=== PATIENT | female | born 1965 | race American Indian/Alaskan Native ===

== ENCOUNTER 2018-06-30 09:17 | Inpatient (IN) | payer OTHER ==
--- NOTE | 2018-06-30 10:40 | ED PDOC ---
HPI: CCC, URI, Sore Throat Time Seen by Provider: 06/30/18 10:17 Chief Complaint (Nursing): ENT Problem Chief Complaint (Provider): ENT Problem History Per: Patient History/Exam Limitations: no limitations Onset/Duration Of Symptoms: Days (x1) Associated Symptoms: Chills, Sore Throat, Other (Ear pain). denies: Cough Additional Complaint(s): 52 years old female presents to ER for evaluation of sore throat associated with painful swallowing, chills and right ear pain since yesterday. Patient denies cough or shortness of breath. PMD: non provided Past Medical History Reviewed: Historical Data, Nursing Documentation, Vital Signs Vital Signs: Last Vital Signs Temp 98.8 F 06/30/18 09:28 Pulse 110 H 06/30/18 09:51 Resp 19 06/30/18 09:51 BP 175/97 H 06/30/18 09:51 Pulse Ox 100 06/30/18 09:51 - Medical History PMH: Diabetes, HTN - Surgical History Surgical History: No Surg Hx - Family History Family History: States: Unknown Family Hx - Social History Current smoker - smoking cessation education provided: Yes Alcohol: Social Drugs: Denies - Home Medications Home Medications: Ambulatory Orders Medication Instructions Recorded Aspirin [Ecotrin] 81 mg PO DAILY #30 tabec 07/03/18 Carvedilol [Coreg] 3.125 mg PO Q12 30 Days #60 tab 07/03/18 Losartan [Cozaar] 25 mg PO DAILY #30 tab 07/03/18 Rosuvastatin Calcium [Crestor] 40 mg PO HS 30 Days #30 tablet 07/03/18 Insulin Detemir [Levemir] 10 units SC HS #1 vial 07/04/18 MetFORMIN [glucoPHAGE] 1,000 mg PO BID 30 Days #60 tab 07/04/18 - Allergies Allergies/Adverse Reactions: Allergies Allergy/AdvReac Type Severity Reaction Status Date / Time No Known Allergies Allergy Verified 04/30/15 07:21 Review of Systems ROS Statement: Except As Marked, All Systems Reviewed And Found Negative Constitutional: Positive for: Chills ENT: Positive for: Ear Pain (Right), Throat Pain (with painful swallowing) Respiratory: Negative for: Cough, Shortness of Breath Physical Exam - Reviewed Nursing Documentation Reviewed: Yes Vital Signs Reviewed: Yes - Physical Exam Appears: Positive for: Well (Speaking full sentences), No Acute Distress ENT: Positive for: Pharynx Is (clear), TM Is/Are (normal), Tonsillar Exudate (on right tonsillar). Negative for: Other (Drooling of uvula midline) Cardiovascular/Chest: Positive for: Regular Rate, Rhythm. Negative for: Murmur Respiratory: Positive for: Normal Breath Sounds. Negative for: Wheezing Neurologic/Psych: Positive for: Alert, Oriented (x3) - Laboratory Results Result Diagrams: 07/04/18 05:30 07/04/18 05:30 - ECG O2 Sat by Pulse Oximetry: 100 (RA) Pulse Ox Interpretation: Normal Medical Decision Making Medical Decision Making: Time: 1033 Initial Plan: --Motrin 600 mg PO --Throat Culture --Rapid Strep Group A Antigen Scribe Attestation: Documented by Becky Allen, acting as a scribe for Paige Lawrence MD. Provider Scribe Attestation: All medical record entries made by the Scribe were at my direction and personally dictated by me. I have reviewed the chart and agree that the record accurately reflects my personal performance of the history, physical exam, medical decision making, and the department course for this patient. I have also personally directed, reviewed, and agree with the discharge instructions and disposition. Disposition - Clinical Impression Clinical Impression: Pharyngitis, Sepsis - Disposition Disposition Time: 15:57 Condition: STABLE - Pt Status Changed To: Hospital Disposition Of: Inpatient - Admit Certification Admit to Inpatient:: After my assessment, the patient will require hospitalization for at least two midnights. This is because of the severity of symptoms shown, intensity of services needed, and/or the medical risk in this patient being treated as an outpatient. - POA Present On Arrival: Poor Glycemic Control
[2018-06-30] MEDS ORDERED: Sodium Chloride 0.9% 1,000 ML IV STA ×3 (11:53→17:12)
[2018-06-30] MEDS ORDERED: Azithromycin 500 MG in Sodium Chloride 0.9% 250 ML IV STA (11:54)
[2018-06-30] MEDS ORDERED: Azithromycin 500 MG IV IVPB ONE (11:58)
[2018-06-30 12:38] LABS: BASO # 0.1 K/uL (0.0-0.2); BASO % 0.8 % (0.0-2.0); EOS # 0.1 K/uL (0.0-0.7); EOS % 0.8 % (0.0-4.0); HEMOGLOBIN 12.5 g/dL (12.0-16.0); LYMPH # 1.8 K/uL (1.0-4.3); LYMPH % 12.3 % (20.0-40.0); MEAN CELL VOLUME 84.1 fl (81.0-99.0); MEAN CORPUSCULAR HEMOGLOBIN 28.2 pg (27.0-31.0); MEAN CORPUSCULAR HGB CONC 33.5 g/dL (33.0-37.0); MEAN PLATELET VOLUME 7.7 fl (7.2-11.7); MONO # 1.2 K/uL (0.0-0.8); MONO % 8.1 % (0.0-10.0); NEUT # 11.6 K/uL (1.8-7.0); NRBC % 0.2 % (0.0-0.0); RBC 4.45 Mil/uL (3.80-5.20); RED CELL DISTRIBUTION WIDTH 15.3 % (11.5-14.5); WHITE BLOOD COUNT 14.9 K/uL (4.8-10.8)
[2018-06-30 12:41] LABS: VENOUS BLOOD GAS BASE EXCESS -0.6 mmol/L (0.0-2.0); VENOUS BLOOD GAS PCO2 43 mmHg (40-60); VENOUS BLOOD GAS PO2 28 mm/Hg (30-55); VENOUS BLOOD PH 7.37 (7.32-7.43)
[2018-06-30 13:36] LABS: ALB/GLOB RATIO 1.2 (1.0-2.1); ALT/SGPT 14 U/L (9-52); AST/SGOT 16 U/L (14-36); BLOOD UREA NITROGEN 7 mg/dl (7-17); CALCIUM 8.6 mg/dL (8.4-10.2); GFR NON-AFRICAN AMERICAN > 60
[2018-06-30 16:48] LABS: VENOUS BLOOD GAS PCO2 31 mmHg (40-60); VENOUS BLOOD GAS PO2 69 mm/Hg (30-55); VENOUS BLOOD PH 7.41 (7.32-7.43)
[2018-06-30] MEDS ORDERED: Piperacillin/Tazobact 4.5 GM in Sodium Chloride 0.9% 100 ML IVPB STA (16:51)
--- NOTE | 2018-06-30 16:51 | RAD ---
Date of service: 06/30/2018 HISTORY: Fever COMPARISON: No prior. TECHNIQUE: Chest PA and lateral FINDINGS: LINES AND TUBES: None. LUNG AND PLEURA: The lungs are well inflated and clear. No pleural effusion or pneumothorax. HEART AND MEDIASTINUM: The heart is not enlarged. No aortic atherosclerotic calcification present. The hilar and mediastinal contours are within normal limits. SKELETAL STRUCTURES: The bony structures are within normal limits for the patient's age. VISUALIZED UPPER ABDOMEN: Normal. OTHER FINDINGS: None. IMPRESSION: No active pulmonary disease.
[2018-06-30] MEDS ORDERED: Glucagon Recombinant 1 mg Inj IM PRN (17:36)
[2018-06-30] MEDS ORDERED: Dextrose 50% SYRINGE Inj (50 ml) IV PRN (17:36)
--- NOTE | 2018-06-30 17:47 | CP.PCM.HP ---
History of Present Illness - History of Present Illness History of Present Illness: 52 y/o F with PMHx of HTN, DM type 2 presents to ED complaining of sore throat, right ear pain, dry non productive cough since yesterday morning. Patient denies fevers, but had some chills this morning. Patient reports SOB when walking up stairs. IN ER patient has been tachycardic, and labs positive for leukocytosis, and elevated lactic acid. PMD: Dr. Reid Allergies: NKDA PMHx: HTN, DM type 2 Shx: 1 C section SocialHx: Smokes: more than 1/2 pack daily for years, etoh: 1 beer daily, denies recreational drugs ER course: Afebrile, tachy PE: pharynx erythema, dry mucous membranes labs: significant for leukocytosis 14.9, elevated lactate 3.1, and repeat test : 4.3 EKG: sinus tachy, no ST changes CXR : no active disease ER Tx: NS IV fluids 3 L, azithromycin once, zosyn once Present on Admission - Present on Admission Any Indicators Present on Admission: No History of DVT/PE: No History of Uncontrolled Diabetes: No Urinary Catheter: No Decubitus Ulcer Present: No Review of Systems - Review of Systems All systems: reviewed and no additional remarkable complaints except (as per HPI) Past Patient History - Past Social History Alcohol: Social Drugs: Denies - CARDIAC Hx Cardiac Disorders: Yes - ENDOCRINE/METABOLIC Hx Endocrine Disorders: Yes - PSYCHIATRIC Hx Substance Use: No - SURGICAL HISTORY Hx Section: Yes Hx Orthopedic Surgery: Yes (left fractured ankle) - ANESTHESIA Hx Anesthesia: Yes Hx Anesthesia Reactions: No Meds Allergies/Adverse Reactions: Allergies Allergy/AdvReac Type Severity Reaction Status Date / Time No Known Allergies Allergy Verified 04/30/15 07:21 Physical Exam - Constitutional Appears: Non-toxic, No Acute Distress - Eye Exam Eye Exam: EOMI, Normal appearance - ENT Exam ENT Exam: Mucous Membranes Dry - Respiratory Exam Respiratory Exam: Clear to Auscultation Bilateral, NORMAL BREATHING PATTERN. absent: Chest Wall Tenderness, Rales, Rhonchi, Wheezes, Respiratory Distress, Stridor - Cardiovascular Exam Cardiovascular Exam: Tachycardia, REGULAR RHYTHM, +S1, +S2 - GI/Abdominal Exam GI & Abdominal Exam: Normal Bowel Sounds, Soft. absent: Distended, Guarding, Rebound, Rigid, Tenderness - Extremities Exam Extremities exam: Positive for: normal inspection. Negative for: calf tenderness, pedal edema - Back Exam Back exam: NORMAL INSPECTION. absent: CVA tenderness (L), CVA tenderness (R) - Neurological Exam Neurological exam: Alert, CN II-XII Intact, Normal Gait, Oriented x3 - Psychiatric Exam Psychiatric exam: Normal Affect, Normal Mood - Skin Skin Exam: Dry, Intact, Normal Color Results - Vital Signs Recent Vital Signs: Last Vital Signs Temp 98.4 F 06/30/18 17:36 Pulse 114 H 06/30/18 17:36 Resp 17 06/30/18 17:36 BP 150/94 H 06/30/18 17:36 Pulse Ox 100 06/30/18 17:36 - Labs Result Diagrams: 07/01/18 04:40 07/01/18 02:55 Labs: Laboratory Results - last 24 hr 06/30/18 06/30/18 06/30/18 10:53 10:55 11:54 WBC RBC Hgb Hct MCV MCH MCHC RDW Plt Count MPV Neut % (Auto) Lymph % (Auto) Wheeler % (Auto) Eos % (Auto) Baso % (Auto) Neut # (Auto) Lymph # (Auto) Wheeler # (Auto) Eos # (Auto) Baso # (Auto) pO2 28 L VBG pH 7.37 VBG pCO2 43 VBG HCO3 23.2 VBG Total CO2 26.2 VBG O2 Sat (Calc) 53.6 VBG Base Excess -0.6 L VBG Potassium 4.2 Sodium 132.0 Chloride 98.0 Glucose 267 H Lactate 3.1 H FiO2 21.0 Crit Value Called To Crit Value Called By Crit Value Read Back Blood Gas Notified Time Potassium Carbon Dioxide Anion Gap BUN Creatinine Est GFR ( Amer) Est GFR (Non-Af Amer) POC Glucose (mg/dL) 231 H Random Glucose Calcium Total Bilirubin AST ALT Alkaline Phosphatase Total Protein Albumin Globulin Albumin/Globulin Ratio Venous Blood Potassium 4.2 Grp A Beta Strep Ag Negative 06/30/18 06/30/18 06/30/18 12:25 12:25 12:57 WBC 14.9 H RBC 4.45 Hgb 12.5 Hct 37.4 MCV 84.1 MCH 28.2 MCHC 33.5 RDW 15.3 H Plt Count 364 MPV 7.7 Neut % (Auto) 78.0 H Lymph % (Auto) 12.3 L Wheeler % (Auto) 8.1 Eos % (Auto) 0.8 Baso % (Auto) 0.8 Neut # (Auto) 11.6 H Lymph # (Auto) 1.8 Wheeler # (Auto) 1.2 H Eos # (Auto) 0.1 Baso # (Auto) 0.1 pO2 VBG pH VBG pCO2 VBG HCO3 VBG Total CO2 VBG O2 Sat (Calc) VBG Base Excess VBG Potassium Sodium Cancelled 133 Chloride Cancelled 102 Glucose Lactate FiO2 Crit Value Called To Crit Value Called By Crit Value Read Back Blood Gas Notified Time Potassium Cancelled 4.2 Carbon Dioxide Cancelled 21 L Anion Gap Cancelled 14 BUN Cancelled 7 Creatinine Cancelled 0.4 L Est GFR ( Amer) Cancelled > 60 Est GFR (Non-Af Amer) Cancelled > 60 POC Glucose (mg/dL) Random Glucose Cancelled 241 H Calcium Cancelled 8.6 Total Bilirubin Cancelled 0.4 AST Cancelled 16 ALT Cancelled 14 Alkaline Phosphatase Cancelled 58 Total Protein Cancelled 7.3 Albumin Cancelled 4.0 Globulin Cancelled 3.3 Albumin/Globulin Ratio Cancelled 1.2 Venous Blood Potassium Grp A Beta Strep Ag 06/30/18 06/30/18 15:17 16:45 WBC RBC Hgb Hct MCV MCH MCHC RDW Plt Count MPV Neut % (Auto) Lymph % (Auto) Wheeler % (Auto) Eos % (Auto) Baso % (Auto) Neut # (Auto) Lymph # (Auto) Wheeler # (Auto) Eos # (Auto) Baso # (Auto) pO2 69 H VBG pH 7.41 VBG pCO2 31 L VBG HCO3 21.7 VBG Total CO2 20.6 L VBG O2 Sat (Calc) 96.5 H VBG Base Excess -4.0 L VBG Potassium 4.2 Sodium 131.0 L Chloride 99.0 Glucose 337 H Lactate 4.3 H* FiO2 21.0 Crit Value Called To Paige brower md Crit Value Called By 6075 Crit Value Read Back Y Blood Gas Notified Time 1648 Potassium Carbon Dioxide Anion Gap BUN Creatinine Est GFR ( Amer) Est GFR (Non-Af Amer) POC Glucose (mg/dL) 230 H Random Glucose Calcium Total Bilirubin AST ALT Alkaline Phosphatase Total Protein Albumin Globulin Albumin/Globulin Ratio Venous Blood Potassium 4.2 Grp A Beta Strep Ag Assessment & Plan - Assessment and Plan (Free Text) Assessment: 52 y/o F with PMHx of HTN, DM type 2 admitted with URI, tachycardia, and elevated lactic acid. Plan: Tachycardia -alarm security or surveillance monitor -IV hydration -repeat EKG in AM -check TSH -check urine toxicology -echocardiogram -f/u HR -will consider cardiology Pharyngitis seems to be viral etiology, however lactic acid is elevated on admission, and pt is tachycardic -rapid strep test in ER neg -check flu A/B test -cepachol for sore throat -tylenol PRN if fevers -Ibuprofen PRN for sore throat -s/p zosyn, and azithro in ER one dose, will re-assess in the morning Elevated lactate -check procalcitonin -hold Metformin for now Hypertension -DC amlodipine 10 due to tachycardia -Increase Lisinopril from 10 to 20 mg -will consider add another antihypertensive -f/u BP DM type 2 accuckeck ACHS levemir 8 units HS humalog by sliding scale ACHS low dose diabetic diet Smoker nicotine patch DVT prophylaxis lovenox - Date & Time Date: 06/30/18 Time: 17:00
[2018-06-30] MEDS: Sodium Chloride 0.45% 1,000 ML IV SCH (17:50)
[2018-06-30 18:37] VITALS: BMI 39.6
--- NOTE | 2018-06-30 18:54 | CARD ---
APPROVED REPORT Date of service: 06/30/2018 EKG Measurement Heart [id number] <Conclusion> Sinus tachycardia Left axis deviation Left ventricular hypertrophy with repolarization abnormality Cannot rule out Septal infarct, age undetermined Abnormal ECG
[2018-06-30] MEDS: Benzocaine/Menthol (Cepacol) Lozenge PO SCH ×2 (19:05→22:00)
[2018-06-30 19:22] LABS: BARBITURATES, UR NEGATIVE (NEGATIVE); BENZODIAZEPINES, UR NEGATIVE (NEGATIVE); OPIATES, UR NEGATIVE (NEGATIVE); PHENCYCLIDINE, UR NEGATIVE (NEGATIVE)
[2018-06-30 19:29] LABS: HDL CHOLESTEROL 81 MG/DL (30-70)
[2018-06-30 19:39] LABS: LDL CHOLESTEROL 102 mg/dL (0-129)
[2018-06-30] MEDS: Insulin Lispro (humaLOG) 100 Units/ml Inj SC SCH (22:00)
[2018-06-30] MEDS ORDERED: Insulin Detemir 100 Units/ml Inj SC SCH (22:00)
[2018-07-01] MEDS: Benzocaine/Menthol (Cepacol) Lozenge PO SCH ×5 (01:30→21:47)
[2018-07-01 03:05] LABS: ALB/GLOB RATIO 1.2 (1.0-2.1); ALBUMIN 3.6 g/dL (3.5-5.0); ALT/SGPT 13 U/L (9-52); AST/SGOT 14 U/L (14-36); BLOOD UREA NITROGEN 7 mg/dl (7-17); CALCIUM 8.3 mg/dL (8.4-10.2); GFR NON-AFRICAN AMERICAN > 60
[2018-07-01] MEDS: Sodium Chloride 0.45% 1,000 ML IV SCH (05:08)
[2018-07-01 05:53] LABS: BASO # 0.1 K/uL (0.0-0.2); BASO % 0.6 % (0.0-2.0); EOS # 0.1 K/uL (0.0-0.7); EOS % 0.6 % (0.0-4.0); HEMOGLOBIN 11.4 g/dL (12.0-16.0); LYMPH # 1.3 K/uL (1.0-4.3); LYMPH % 10.1 % (20.0-40.0); MEAN CELL VOLUME 81.4 fl (81.0-99.0); MEAN CORPUSCULAR HEMOGLOBIN 28.1 pg (27.0-31.0); MEAN CORPUSCULAR HGB CONC 34.5 g/dL (33.0-37.0); MEAN PLATELET VOLUME 7.9 fl (7.2-11.7); MONO # 0.9 K/uL (0.0-0.8); MONO % 6.9 % (0.0-10.0); NEUT # 10.9 K/uL (1.8-7.0); NEUT % 81.8 % (50.0-75.0); RBC 4.08 Mil/uL (3.80-5.20); WHITE BLOOD COUNT 13.3 K/uL (4.8-10.8)
[2018-07-01] MEDS ORDERED: Potassium Chloride 20 mEq ER Tab PO ONE (06:31)
[2018-07-01] MEDS ORDERED: Benzocaine/Menthol (Cepacol) Lozenge PO ONE (08:30)
[2018-07-01] MEDS ORDERED: Enoxaparin 40 mg Syringe SC SCH (09:00)
[2018-07-01] MEDS ORDERED: Metoprolol Succinate 25 mg XL Tab PO SCH (09:00)
[2018-07-01] MEDS: Insulin Lispro (humaLOG) 100 Units/ml Inj SC SCH ×4 (09:30→22:00)
[2018-07-01] MEDS: Pantoprazole 40 mg EC Tab PO SCH (09:34)
--- NOTE | 2018-07-01 13:26 | CP.PCM.PN ---
Subjective - Date & Time of Evaluation Date of Evaluation: 07/01/18 Time of Evaluation: 08:00 - Subjective Subjective: Patient was seen, and examined at bedside this morning. Patient states still having sore throat. No fevers overnight. Still tachycardic. Patient denies chest pain, SOB, abdominal pain, urinary symptoms, diarrheas, bloody stools. Objective - Vital Signs/Intake and Output Vital Signs (last 24 hours): Temp Pulse Resp BP Pulse Ox 100.3 F H 108 H 20 159/93 H 100 07/01/18 12:21 07/01/18 12:21 07/01/18 12:21 07/01/18 12:21 07/01/18 12:21 - Medications Medications: Current Medications Acetaminophen (Tylenol 325mg Tab) 650 mg PO Q6 PRN PRN Reason: Fever >100.4 F Benzocaine/Menthol (Cepacol Sore Throat) 1 mallory PO Q6 [facility] Last Admin: 07/01/18 11:12 Dose: 1 mallory Dextrose (Dextrose 50% Inj) 0 ml IV STAT PRN; Protocol PRN Reason: Hypoglycemia Protocol Dextrose (Glutose 15) 0 gm PO ONCE PRN; Protocol PRN Reason: Hypoglycemia Protocol Enoxaparin Sodium (Lovenox) 40 mg SC DAILY [facility]; Protocol Last Admin: 07/01/18 09:26 Dose: 40 mg Glucagon (Glucagen Diagnostic Kit) 0 mg IM STAT PRN; Protocol PRN Reason: Hypoglycemia Protocol Azithromycin 500 mg/ Sodium (Chloride) 250 mls @ 250 mls/hr IVPB DAILY [facility]; Protocol Insulin Detemir (Levemir) 8 units SC HS [facility] Last Admin: 06/30/18 22:05 Dose: 8 units Insulin Human Lispro (Humalog) 0 units SC ACHS [facility]; Protocol Last Admin: 07/01/18 11:54 Dose: 3 units Lisinopril (Zestril) 20 mg PO DAILY [facility] Last Admin: 07/01/18 09:32 Dose: 20 mg Metoprolol Succinate (Toprol Xl) 25 mg PO DAILY [facility] Last Admin: 07/01/18 09:46 Dose: 25 mg Nicotine (Nicoderm Cq) 1 patch TD DAILY [facility] Last Admin: 07/01/18 09:29 Dose: 1 patch Pantoprazole Sodium (Protonix Ec Tab) 40 mg PO DAILY [facility] Last Admin: 07/01/18 09:34 Dose: 40 mg Thiamine HCl (Vitamin B1 Tab) 100 mg PO DAILY [facility] Last Admin: 07/01/18 09:32 Dose: 100 mg - Labs Labs: 07/01/18 04:40 07/01/18 02:55 - Constitutional Appears: Non-toxic, No Acute Distress - Eye Exam Eye Exam: Normal appearance - ENT Exam ENT Exam: Mucous Membranes Moist - Respiratory Exam Respiratory Exam: Clear to Ausculation Bilateral, NORMAL BREATHING PATTERN. absent: Rales, Rhonchi, Wheezes, Respiratory Distress, Stridor - Cardiovascular Exam Cardiovascular Exam: Tachycardia, REGULAR RHYTHM, +S1, +S2 - GI/Abdominal Exam GI & Abdominal Exam: Soft, Normal Bowel Sounds. absent: Distended, Guarding, Tenderness - Extremities Exam Extremities Exam: Normal Inspection. absent: Calf Tenderness, Pedal Edema - Back Exam Back Exam: NORMAL INSPECTION. absent: CVA tenderness (L), CVA tenderness (R) - Neurological Exam Neurological Exam: Alert, Awake, Oriented x3 - Skin Skin Exam: Dry, Intact, Normal Color Assessment and Plan - Assessment and Plan (Free Text) Assessment: 52 y/o F with PMHx of HTN, DM type 2 admitted with URI, tachycardia, and elevate d lactic acid. Plan: Tachycardia -clinical research monitor -still tachy -repeat EKG in AM showed similar findings -TSH pending -urine toxicology negative -echocardiogram pending results -start Metoprolol succ 25 mg -troponin I x 2 negative -f/u HR -Cardiology consult, appreciated recommendations Pharyngitis seems to be viral etiology, however lactic acid is elevated on admission, and pt is tachycardic -rapid strep test in ER neg -flu A/B test negative -cepachol for sore throat -tylenol PRN if fevers -Ibuprofen PRN for sore throat -s/p zosyn, and azithro in ER one dose, will re-assess in the morning Elevated lactate resolved this morning/1.4 -procalcitonin <0.05 -troponin I x 2 negative -f/u UA Hypertension uncontrolled -DC amlodipine 10 due to tachycardia -increase Lisinopril from 20 to 40 mg -start Metoprolol succ 25 mg -f/u BP DM type 2 accuckeck ACHS increase levemir from 8 to 10 units HS humalog by sliding scale ACHS low dose diabetic diet hgbA1C 8.6 lipid panel: cho: 186, LDL: 102, HDL: 81 will resume Metformin 1000 mg BID. Will check lactic acid in am -start aspirin, and statin Hypokalemia mild replace with potassium cl 20 meq check in am Smoker nicotine patch DVT prophylaxis lovenox
[2018-07-01] MEDS: Azithromycin 500 MG in Sodium Chloride 0.9% 250 ML IVPB SCH (15:26)
[2018-07-01] MEDS ORDERED: Metoprolol Succinate 25 mg XL Tab PO ONE (17:15)
--- NOTE | 2018-07-01 20:52 | CARD ---
APPROVED REPORT Date of service: 07/01/2018 EKG Measurement Heart [id number] <Conclusion> Sinus tachycardia Left axis deviation Incomplete left bundle branch block Minimal voltage criteria for LVH, may be normal variant Abnormal ECG
[2018-07-01 21:29] LABS: MEAN CELL VOLUME 82.4 fl (81.0-99.0); MEAN CORPUSCULAR HEMOGLOBIN 27.4 pg (27.0-31.0); MEAN CORPUSCULAR HGB CONC 33.3 g/dL (33.0-37.0); RBC 4.38 Mil/uL (3.80-5.20); RED CELL DISTRIBUTION WIDTH 14.9 % (11.5-14.5); WHITE BLOOD COUNT 18.5 K/uL (4.8-10.8)
--- NOTE | 2018-07-01 21:30 | CARD ---
APPROVED REPORT Date of service: 07/01/2018 EXAM: Two-dimensional and M-mode echocardiogram with Doppler and color Doppler. Other Information Quality : GoodRhythm : Tachycardia INDICATION Abnormal EKG/Arrhythmia 2D DIMENSIONS IVSd1.08 (0.7-1.1cm)LVDd4.05 (3.9-5.9cm) LVOT Diameter2.06 (1.8-2.4cm)PWd1.23 (0.7-1.1cm) IVSs1.12 (0.8-1.2cm)LVDs3.17 (2.5-4.0cm) FS (%) 21.6 %PWs1.61 (0.8-1.2cm) M-Mode DIMENSIONS Left Atrium (MM)3.38 (2.5-4.0cm)IVSd1.06 (0.7-1.1cm) Aortic Root2.41 (2.2-3.7cm)LVDd4.74 (4.0-5.6cm) Aortic Cusp Exc.1.82 (1.5-2.0cm)PWd1.00 (0.7-1.1cm) IVSs1.47 cmFS (%) 32 % LVDs3.21 (2.0-3.8cm)PWs1.62 cm Aortic Valve AoV Peak Itfuspzu596.9cm/sAoV VTI27.2cmAO Peak GR.10mmHg LVOT Peak Bspzjmgx139.1cm/sLVOT VTI17.99cmAO Mean GR.6mmHg RED (VMAX)1.39pr7EHB (VTI)1.97xm7AK P 1/2 [id number] Mitral Valve E/A ratio0.0 TDI E/Lateral E'0.0E/Medial E'0.0 LEFT VENTRICLE The left ventricle is normal size. There is normal left ventricular wall thickness. The left ventricular systolic function is normal. The estimated ejection fraction is 55-60% No regional wall motion abnormalities noted.. Transmitral Doppler flow pattern is Grade I-abnormal relaxation pattern. No left ventricle thrombus noted on this study. There is no ventricular septal defect visualized. There is no left ventricular aneurysm. There is no mass noted in the left ventricle. RIGHT VENTRICLE The right ventricle is normal size. There is normal right ventricular wall thickness. The right ventricular systolic function is normal. ATRIA The left atrium is mildly dilated. The right atrium size is normal. The interatrial septum is intact with no evidence for an atrial septal defect. AORTIC VALVE The aortic valve is normal in structure. Mild aortic regurgitation is present. There is no aortic valvular stenosis. There is no aortic valvular vegetation. MITRAL VALVE The mitral valve is normal in structure. There is no evidence of mitral valve prolapse. There is no mitral valve stenosis. There is trace to mild mitral valve regurgitation noted. TRICUSPID VALVE The tricuspid valve is normal in structure. There is no tricuspid valve regurgitation noted. There is no tricuspid valve prolapse or vegetation. There is no tricuspid valve stenosis. PULMONIC VALVE The pulmonary valve is normal in structure. There is no pulmonic valvular regurgitation. There is no pulmonic valvular stenosis. GREAT VESSELS The aortic root is normal in size. The ascending aorta is normal in size. The pulmonary artery is normal. The IVC is normal in size and collapses >50% with inspiration. PERICARDIAL EFFUSION There is no pericardial effusion. There is no pleural effusion. <Conclusion> The estimated ejection fraction is 55-60% Transmitral Doppler flow pattern is Grade I-abnormal relaxation pattern. The left atrium is mildly dilated. Mild aortic regurgitation is present. There is trace to mild mitral valve regurgitation noted.
[2018-07-01 21:40] LABS: PROTHROMBIN TIME 11.1 Seconds (9.8-13.1)
[2018-07-01 21:43] LABS: PARTIAL THROMBOPLASTIN TIME 31.9 Seconds (25.6-37.1)
[2018-07-01] MEDS ORDERED: Insulin Detemir 100 Units/ml Inj SC SCH (22:00)
[2018-07-01] MEDS: Heparin 25,000units in D5W 25,000 UNITS/250 ML BAG IV SCH (22:06)
[2018-07-02] MEDS: Benzocaine/Menthol (Cepacol) Lozenge PO SCH ×4 (03:35→21:03)
[2018-07-02 05:42] LABS: BASO # 0.1 K/uL (0.0-0.2); BASO % 0.4 % (0.0-2.0); EOS # 0.1 K/uL (0.0-0.7); EOS % 0.5 % (0.0-4.0); HEMOGLOBIN 12.4 g/dL (12.0-16.0); LYMPH # 1.9 K/uL (1.0-4.3); LYMPH % 10.7 % (20.0-40.0); MEAN CELL VOLUME 81.4 fl (81.0-99.0); MEAN CORPUSCULAR HEMOGLOBIN 27.8 pg (27.0-31.0); MEAN CORPUSCULAR HGB CONC 34.1 g/dL (33.0-37.0); MEAN PLATELET VOLUME 8.1 fl (7.2-11.7); MONO # 1.6 K/uL (0.0-0.8); MONO % 9.1 % (0.0-10.0); NEUT # 14.1 K/uL (1.8-7.0); NEUT % 79.3 % (50.0-75.0); NRBC % 0.2 % (0.0-0.0); RBC 4.47 Mil/uL (3.80-5.20); RED CELL DISTRIBUTION WIDTH 15.2 % (11.5-14.5); WHITE BLOOD COUNT 17.7 K/uL (4.8-10.8)
[2018-07-02 06:03] LABS: BLOOD UREA NITROGEN 5 mg/dl (7-17); CALCIUM 9.4 mg/dL (8.4-10.2); GFR NON-AFRICAN AMERICAN > 60
[2018-07-02 06:04] LABS: PROTHROMBIN TIME 11.5 Seconds (9.8-13.1)
[2018-07-02 06:06] LABS: PARTIAL THROMBOPLASTIN TIME 45.3 Seconds (25.6-37.1)
[2018-07-02] MEDS ORDERED: Metoprolol Succinate 50 mg XL Tab PO SCH (09:00)
[2018-07-02] MEDS: Insulin Lispro (humaLOG) 100 Units/ml Inj SC SCH ×4 (09:21→21:32)
[2018-07-02] MEDS ORDERED: Caffeine Citrated **INJ** 20 MG/ML IV ONE (09:30)
[2018-07-02] MEDS: Pantoprazole 40 mg EC Tab PO SCH (10:10)
--- NOTE | 2018-07-02 11:34 | CP.PCM.PN ---
Subjective - Date & Time of Evaluation Date of Evaluation: 07/02/18 Time of Evaluation: 07:35 - Subjective Subjective: Patient was seen, and examined at bedside this morning. Patient states still having sore throat. No fevers overnight. Still tachycardic, but improving. Patient denies chest pain, SOB, abdominal pain, urinary symptoms, diarrheas, bloody stools. Patient for Lexiscan stress test this morning by Dr. Monk. NPO after midnight. Objective - Vital Signs/Intake and Output Vital Signs (last 24 hours): Temp Pulse Resp BP Pulse Ox 98.3 F 97 H 18 143/91 H 98 07/02/18 08:28 07/02/18 10:12 07/02/18 08:28 07/02/18 10:12 07/02/18 08:28 Intake and Output: 07/02/18 07/02/18 06:59 18:59 Intake Total 80 Balance 80 - Medications Medications: Current Medications Acetaminophen (Tylenol 325mg Tab) 650 mg PO Q6 PRN PRN Reason: Fever >100.4 F Aspirin (Ecotrin) 81 mg PO DAILY [facility]S [facility]CLUDE 234 BEDS AT [facility] Last Admin: 07/02/18 10:09 Dose: 81 mg Atorvastatin Calcium (Lipitor) 40 mg PO HS COUNTS INCLUDE 234 BEDS AT THE [facility] Last Admin: 07/02/18 03:34 Dose: Not Given Benzocaine/Menthol (Cepacol Sore Throat) 1 mallory PO Q6 [facility]S [facility]CLUDE 234 BEDS AT THE [facility] Last Admin: 07/02/18 10:09 Dose: Not Given Dextrose (Dextrose 50% Inj) 0 ml IV STAT PRN; Protocol PRN Reason: Hypoglycemia Protocol Dextrose (Glutose 15) 0 gm PO ONCE PRN; Protocol PRN Reason: Hypoglycemia Protocol Glucagon (Glucagen Diagnostic Kit) 0 mg IM STAT PRN; Protocol PRN Reason: Hypoglycemia Protocol Azithromycin 500 mg/ Sodium (Chloride) 250 mls @ 250 mls/hr IVPB DAILY [facility]; Protocol Last Admin: 07/01/18 15:26 Dose: 250 mls/hr Heparin Sodium/Dextrose (Heparin 25,000 Units/250ml In D5w) 25,000 units in 250 mls @ 10 mls/hr IV .Q24H [facility]; Protocol Last Titration: 07/02/18 06:21 Dose: 12 mls/hr Insulin Detemir (Levemir) 10 units SC HS COUNTS INCLUDE 234 BEDS AT THE [facility] Last Admin: 07/01/18 21:47 Dose: 10 units Insulin Human Lispro (Humalog) 0 units SC [facility] COUNTS INCLUDE 234 BEDS AT THE [facility]; Protocol Last Admin: 07/02/18 09:21 Dose: Not Given Lisinopril (Zestril) 40 mg PO DAILY COUNTS INCLUDE 234 BEDS AT THE [facility] Last Admin: 07/02/18 10:12 Dose: 40 mg Metformin HCl (Glucophage) 1,000 mg PO BIDWM COUNTS INCLUDE 234 BEDS AT THE [facility] Metoprolol Succinate (Toprol Xl) 50 mg PO DAILY COUNTS INCLUDE 234 BEDS AT THE [facility] Last Admin: 07/02/18 10:10 Dose: 50 mg Nicotine (Nicoderm Cq) 1 patch TD DAILY COUNTS INCLUDE 234 BEDS AT THE [facility] Last Admin: 07/02/18 10:06 Dose: 1 patch Pantoprazole Sodium (Protonix Ec Tab) 40 mg PO DAILY COUNTS INCLUDE 234 BEDS AT THE [facility] Last Admin: 07/02/18 10:10 Dose: 40 mg Thiamine HCl (Vitamin B1 Tab) 100 mg PO DAILY COUNTS INCLUDE 234 BEDS AT THE [facility] Last Admin: 07/01/18 09:32 Dose: 100 mg Zolpidem Tartrate (Ambien) 5 mg PO HS PRN PRN Reason: Insomnia Last Admin: 07/01/18 21:47 Dose: 5 mg - Labs Labs: 07/02/18 04:55 07/02/18 04:55 PT 11.5 Seconds (9.8-13.1) 07/02/18 04:55 INR 1.0 07/02/18 04:55 APTT 45.3 Seconds (25.6-37.1) H 07/02/18 04:55 - Skin Additional comments: Constitutional Appears: Non-toxic, No Acute Distress - Eye Exam Eye Exam: Normal appearance - ENT Exam ENT Exam: Mucous Membranes Moist - Respiratory Exam Respiratory Exam: Clear to Ausculation Bilateral, NORMAL BREATHING PATTERN. absent: Rales, Rhonchi, Wheezes, Respiratory Distress, Stridor - Cardiovascular Exam Cardiovascular Exam: Tachycardia, REGULAR RHYTHM, +S1, +S2 - GI/Abdominal Exam GI & Abdominal Exam: Soft, Normal Bowel Sounds. absent: Distended, Guarding, Tenderness - Extremities Exam Extremities Exam: Normal Inspection. absent: Calf Tenderness, Pedal Edema - Back Exam Back Exam: NORMAL INSPECTION. absent: CVA tenderness (L), CVA tenderness (R) - Neurological Exam Neurological Exam: Alert, Awake, Oriented x3 - Skin Skin Exam: Dry, Intact, Normal Color Assessment and Plan - Assessment and Plan (Free Text) Assessment: 52 y/o F with PMHx of HTN, DM type 2 admitted with URI, tachycardia, and elevated lactic acid. 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, but improving -NPO after midnight for pharmacologic stress test as per Cardiology r/o CAD -repeat EKG in AM showed similar findings -TSH wnl -urine toxicology negative -echocardiogram reported as EF : 55-60 %, abnormal relaxation, left atrium mi ldly dilated, mild aortic reg, mild mitral valve regurg -DC Metoprolol succ 25 mg -started on Metoprolol succ 50 mg -started on Heparin drip yesterday afternoon as per Cardiology recs -troponin I x 2 negative -f/u HR -Cardiology consult, appreciated recommendations Pharyngitis seems to be viral etiology, however lactic acid is elevated on admission, and pt is tachycardic -rapid strep test in ER neg -flu A/B test negative -cepachol for sore throat -tylenol PRN if fevers -avoid NSAIDs -s/p zosyn, and azithro in ER one dose, will re-assess in the morning Elevated lactate resolved this morning/1.4 -procalcitonin <0.05 -troponin I x 2 negative -f/u UA Hypertension uncontrolled -DC amlodipine 10 due to tachycardia -c/w Lisinopril 40 mg -increase Metoprolol succ from 25 to 50 mg -f/u BP DM type 2 accuckeck ACHS on levemir 10 units HS, will increase to 14 units humalog by sliding scale ACHS low dose diabetic diet hgbA1C 8.6 lipid panel: cho: 186, LDL: 102, HDL: 81 will resume Metformin 1000 mg BID. Will check lactic acid in am -start aspirin, and statin Hypokalemia resolved replace with potassium cl 20 meq Smoker nicotine patch DVT prophylaxis on heparin drip as per Cardiology recs
[2018-07-02 13:41] LABS: PROTHROMBIN TIME 11.7 Seconds (9.8-13.1)
[2018-07-02 13:44] LABS: PARTIAL THROMBOPLASTIN TIME 61.7 Seconds (25.6-37.1)
[2018-07-02] MEDS ORDERED: Metoprolol Succinate 25 mg XL Tab PO ONE ×2 (16:39→17:15)
[2018-07-02] MEDS: Heparin 25,000units in D5W 25,000 UNITS/250 ML BAG IV SCH ×2 (16:55→21:09)
[2018-07-02] MEDS: Azithromycin 500 MG in Sodium Chloride 0.9% 250 ML IVPB SCH (16:59)
--- NOTE | 2018-07-02 17:53 | CP.PCM.CON ---
History of Present Illness - History of Present Illness History of Present Illness: Consultation for evaluation of EKG changes with URI sx and new ADAME HPI: 52 year old AAF with hx of HTN, DM presented with URI sx and ? EKG changes in anterior wall. Echo done showed strain imaging with possible anterior wall changes. Patient initiated on IV heparin per [facility] protocol. Nuclear stress test showing anteroseptal wall ischemia. Review of Systems - Review of Systems Systems not reviewed;Unavailable: Acuity of Condition - Constitutional Constitutional: As Per HPI - EENT Eyes: As Per HPI Ears: As Per HPI Nose/Mouth/Throat: As Per HPI - Breasts Breasts: As Per HPI - Cardiovascular Cardiovascular: As Per HPI - Respiratory Respiratory: As Per HPI - Gastrointestinal Gastrointestinal: As Per HPI - Genitourinary Genitourinary: As Per HPI - Reproductive: Female Reproductive:Female: As Per HPI - Menstruation Menstruation: As Per HPI - Musculoskeletal Musculoskeletal: As Per HPI - Integumentary Integumentary: As Per HPI - Neurological Neurological: As Per HPI - Psychiatric Psychiatric: As Per HPI - Endocrine Endocrine: As Per HPI - Hematologic/Lymphatic Hematologic: As Per HPI Past Patient History - Past Medical History & Family History Past Medical History?: Yes - Past Social History Alcohol: Social Drugs: Denies - CARDIAC Hx Hypertension: Yes - PULMONARY Hx Respiratory Disorders: No - NEUROLOGICAL Hx Neurological Disorder: No - HEENT Hx HEENT Problems: No - RENAL Hx Chronic Kidney Disease: No - ENDOCRINE/METABOLIC Hx Endocrine Disorders: Yes - HEMATOLOGICAL/ONCOLOGICAL Hx Blood Disorders: No Hx AIDS: No Hx Human Immunodeficiency Virus (HIV): No - INTEGUMENTARY Hx Dermatological Problems: No - MUSCULOSKELETAL/RHEUMATOLOGICAL Hx Musculoskeletal Disorders: No Hx Falls: No - GASTROINTESTINAL Hx Gastrointestinal Disorders: No - GENITOURINARY/GYNECOLOGICAL Hx Genitourinary Disorders: No - PSYCHIATRIC Hx Substance Use: No - SURGICAL HISTORY Hx Section: Yes Hx Orthopedic Surgery: Yes (left fractured ankle) - ANESTHESIA Hx Anesthesia: Yes Hx Anesthesia Reactions: No Meds Allergies/Adverse Reactions: Allergies Allergy/AdvReac Type Severity Reaction Status Date / Time No Known Allergies Allergy Verified 04/30/15 07:21 - Medications Medications: Current Medications Acetaminophen (Tylenol 325mg Tab) 650 mg PO Q6 PRN PRN Reason: Fever >100.4 F Aspirin (Ecotrin) 81 mg PO DAILY [facility] Last Admin: 07/02/18 10:09 Dose: 81 mg Atorvastatin Calcium (Lipitor) 40 mg PO HS [facility] Last Admin: 07/02/18 03:34 Dose: Not Given Azithromycin (Zithromax) 500 mg PO DAILY [facility]; Protocol Stop: 07/04/18 13:00 Last Admin: 07/02/18 16:53 Dose: 500 mg Benzocaine/Menthol (Cepacol Sore Throat) 1 mallory PO Q6 [facility] Last Admin: 07/02/18 16:34 Dose: 1 mallory Dextrose (Dextrose 50% Inj) 0 ml IV STAT PRN; Protocol PRN Reason: Hypoglycemia Protocol Dextrose (Glutose 15) 0 gm PO ONCE PRN; Protocol PRN Reason: Hypoglycemia Protocol Glucagon (Glucagen Diagnostic Kit) 0 mg IM STAT PRN; Protocol PRN Reason: Hypoglycemia Protocol Heparin Sodium/Dextrose (Heparin 25,000 Units/250ml In D5w) 25,000 units in 250 mls @ 10 mls/hr IV .Q24H [facility]; Protocol Last Titration: 07/02/18 06:21 Dose: 12 mls/hr Heparin Sodium/Dextrose (Heparin 25,000 Units/250ml In D5w) 25,000 units in 250 mls @ 12 mls/hr IV .[id number] [facility]; Protocol Last Admin: 07/02/18 16:55 Dose: 12 mls/hr Insulin Detemir (Levemir) 14 units SC HS [facility] Insulin Human Lispro (Humalog) 0 units SC ACHS [facility]; Protocol Last Admin: 07/02/18 16:35 Dose: 5 units Lisinopril (Zestril) 40 mg PO DAILY [facility] Last Admin: 07/02/18 10:12 Dose: 40 mg Metformin HCl (Glucophage) 1,000 mg PO BIDWM [facility] Last Admin: 07/02/18 16:52 Dose: Not Given Metoprolol Succinate (Toprol Xl) 50 mg PO DAILY [facility] Last Admin: 07/02/18 10:10 Dose: 50 mg Nicotine (Nicoderm Cq) 1 patch TD DAILY [facility] Last Admin: 07/02/18 10:06 Dose: 1 patch Pantoprazole Sodium (Protonix Ec Tab) 40 mg PO DAILY [facility] Last Admin: 07/02/18 10:10 Dose: 40 mg Thiamine HCl (Vitamin B1 Tab) 100 mg PO DAILY [facility] Last Admin: 07/02/18 16:28 Dose: 100 mg Zolpidem Tartrate (Ambien) 5 mg PO HS PRN PRN Reason: Insomnia Last Admin: 07/01/18 21:47 Dose: 5 mg Physical Exam - Constitutional Appears: Well - Head Exam Head Exam: ATRAUMATIC, NORMAL INSPECTION, NORMOCEPHALIC - Eye Exam Eye Exam: EOMI, Normal appearance, PERRL Pupil Exam: NORMAL ACCOMODATION, PERRL - ENT Exam ENT Exam: Mucous Membranes Moist, Normal Exam - Neck Exam Neck exam: Positive for: Normal Inspection - Respiratory Exam Respiratory Exam: Clear to Auscultation Bilateral, NORMAL BREATHING PATTERN - Cardiovascular Exam Cardiovascular Exam: REGULAR RHYTHM, Systolic Murmur - GI/Abdominal Exam GI & Abdominal Exam: Normal Bowel Sounds, Soft. absent: Tenderness - Extremities Exam Extremities exam: Positive for: normal inspection - Back Exam Back exam: NORMAL INSPECTION - Neurological Exam Neurological exam: Alert, CN II-XII Intact, Normal Gait, Oriented x3, Reflexes Normal - Psychiatric Exam Psychiatric exam: Normal Affect, Normal Mood - Skin Skin Exam: Dry, Intact, Normal Color, Warm Results - Vital Signs Recent Vital Signs: Last Vital Signs Temp 98.2 F 07/02/18 15:42 Pulse 97 H 07/02/18 15:42 Resp 18 07/02/18 15:42 BP 150/92 H 07/02/18 15:42 Pulse Ox 99 07/02/18 15:42 - Labs Result Diagrams: 07/02/18 04:55 07/02/18 04:55 Labs: Laboratory Results - last 24 hr 07/01/18 07/01/18 07/01/18 11:04 15:52 17:49 WBC RBC Hgb Hct MCV MCH MCHC RDW Plt Count MPV Neut % (Auto) Lymph % (Auto) Metcalfe % (Auto) Eos % (Auto) Baso % (Auto) Neut # (Auto) Lymph # (Auto) Metcalfe # (Auto) Eos # (Auto) Baso # (Auto) PT INR APTT Sodium Potassium Chloride Carbon Dioxide Anion Gap BUN Creatinine Est GFR ( Amer) Est GFR (Non-Af Amer) POC Glucose (mg/dL) 269 H 284 H Random Glucose Lactic Acid Calcium TSH 3rd Generation 2.24 07/01/18 07/01/18 07/01/18 21:26 21:26 21:41 WBC 18.5 H RBC 4.38 Hgb 12.0 Hct 36.1 MCV 82.4 MCH 27.4 MCHC 33.3 RDW 14.9 H Plt Count 340 MPV Neut % (Auto) Lymph % (Auto) Metcalfe % (Auto) Eos % (Auto) Baso % (Auto) Neut # (Auto) Lymph # (Auto) [place]calfe # (Auto) Eos # (Auto) Baso # (Auto) PT 11.1 INR 1.0 APTT 31.9 Sodium Potassium Chloride Carbon Dioxide Anion Gap BUN Creatinine Est GFR ( Amer) Est GFR (Non-Af Amer) POC Glucose (mg/dL) 260 H Random Glucose Lactic Acid Calcium TSH 3rd Generation 07/02/18 07/02/18 07/02/18 04:55 04:55 04:55 WBC 17.7 H RBC 4.47 Hgb 12.4 Hct 36.4 MCV 81.4 MCH 27.8 MCHC 34.1 RDW 15.2 H Plt Count 337 MPV 8.1 Neut % (Auto) 79.3 H Lymph % (Auto) 10.7 L Metcalfe % (Auto) 9.1 Eos % (Auto) 0.5 Baso % (Auto) 0.4 Neut # (Auto) 14.1 H Lymph # (Auto) 1.9 Metcalfe # (Auto) 1.6 H Eos # (Auto) 0.1 Baso # (Auto) 0.1 PT INR APTT Sodium 136 Potassium 4.1 Chloride 103 Carbon Dioxide 24 Anion Gap 13 BUN 5 L Creatinine 0.4 L Est GFR ( Amer) > 60 Est GFR (Non-Af Amer) > 60 POC Glucose (mg/dL) Random Glucose 247 H Lactic Acid 1.1 Calcium 9.4 TSH 3rd Generation 07/02/18 07/02/18 07/02/18 04:55 05:28 10:57 WBC RBC Hgb Hct MCV MCH MCHC RDW Plt Count MPV Neut % (Auto) Lymph % (Auto) Metcalfe % (Auto) Eos % (Auto) Baso % (Auto) Neut # (Auto) Lymph # (Auto) Metcalfe # (Auto) Eos # (Auto) Baso # (Auto) PT 11.5 INR 1.0 APTT 45.3 H Sodium Potassium Chloride Carbon Dioxide Anion Gap BUN Creatinine Est GFR ( Amer) Est GFR (Non-Af Amer) POC Glucose (mg/dL) 219 H 310 H Random Glucose Lactic Acid Calcium TSH 3rd Generation 07/02/18 07/02/18 13:25 16:20 WBC RBC Hgb Hct MCV MCH MCHC RDW Plt Count MPV Neut % (Auto) Lymph % (Auto) Metcalfe % (Auto) Eos % (Auto) Baso % (Auto) Neut # (Auto) Lymph # (Auto) Metcalfe # (Auto) Eos # (Auto) Baso # (Auto) PT 11.7 INR 1.0 APTT 61.7 H Sodium Potassium Chloride Carbon Dioxide Anion Gap BUN Creatinine Est GFR ( Amer) Est GFR (Non-Af Amer) POC Glucose (mg/dL) 352 H Random Glucose Lactic Acid Calcium TSH 3rd Generation Assessment & Plan (1) Unstable angina Assessment and Plan: IV heparin per ACS protocol cont asa add loading dose of brilinta cont bb and statins npo p mn plan for LHCx at [facility] tomorrow Status: Acute (2) Abnormal nuclear stress test Status: Acute (3) HTN (hypertension) Status: Acute (4) Dyslipidemia Status: Acute
[2018-07-02] MEDS: Insulin Detemir 100 Units/ml Inj SC SCH (21:04)
[2018-07-03 05:42] LABS: BASO # 0.2 K/uL (0.0-0.2); BASO % 1.2 % (0.0-2.0); EOS # 0.1 K/uL (0.0-0.7); HEMOGLOBIN 12.3 g/dL (12.0-16.0); LYMPH % 15.2 % (20.0-40.0); MEAN CELL VOLUME 81.6 fl (81.0-99.0); MEAN CORPUSCULAR HEMOGLOBIN 27.8 pg (27.0-31.0); MEAN CORPUSCULAR HGB CONC 34.1 g/dL (33.0-37.0); MEAN PLATELET VOLUME 7.7 fl (7.2-11.7); MONO # 1.4 K/uL (0.0-0.8); MONO % 10.7 % (0.0-10.0); NEUT # 9.6 K/uL (1.8-7.0); NEUT % 71.9 % (50.0-75.0); NRBC % 0.1 % (0.0-0.0); RBC 4.43 Mil/uL (3.80-5.20); WHITE BLOOD COUNT 13.3 K/uL (4.8-10.8)
[2018-07-03 05:54] LABS: PROTHROMBIN TIME 11.6 Seconds (9.8-13.1)
[2018-07-03 05:57] LABS: PARTIAL THROMBOPLASTIN TIME 52.8 Seconds (25.6-37.1)
[2018-07-03] MEDS: Benzocaine/Menthol (Cepacol) Lozenge PO SCH ×2 (06:10→21:38)
[2018-07-03 06:13] LABS: BLOOD UREA NITROGEN 9 mg/dl (7-17); GFR NON-AFRICAN AMERICAN > 60
[2018-07-03 06:14] LABS: CALCIUM 9.1 mg/dL (8.4-10.2)
[2018-07-03] MEDS: Insulin Lispro (humaLOG) 100 Units/ml Inj SC SCH ×2 (06:55→22:00)
--- NOTE | 2018-07-03 08:48 | CP.PCM.PN ---
Subjective - Date & Time of Evaluation Date of Evaluation: 07/03/18 Time of Evaluation: 08:05 - Subjective Subjective: Patient was seen, and examined at bedside this morning. URI symptoms getting better. No fevers overnight. Tachycardic is improving. Patient denies chest pain, SOB, abdominal pain, urinary symptoms, diarrheas, bloody stools. NPO since midnight for Cardiac cath this morning at 11:15 am at [facility] by Dr. Monk. Cardiology reported Lexiscan stress test positive for CAD. On Heparin drip. Had a Brillinta 180 mg loading dose yesterday as per Cardiology recs. Objective - Vital Signs/Intake and Output Vital Signs (last 24 hours): Temp Pulse Resp BP Pulse Ox 98.3 F 89 16 150/82 99 07/03/18 04:08 07/03/18 04:08 07/03/18 04:08 07/03/18 04:08 07/03/18 04:08 Intake and Output: 07/03/18 07/03/18 06:59 18:59 Intake Total 170 Balance 170 - Medications Medications: Current Medications Acetaminophen (Tylenol 325mg Tab) 650 mg PO Q6 PRN PRN Reason: Fever >100.4 F Aspirin (Ecotrin) 81 mg PO DAILY [facility] Last Admin: 07/02/18 10:09 Dose: 81 mg Atorvastatin Calcium (Lipitor) 40 mg PO HS [facility] Last Admin: 07/02/18 21:03 Dose: 40 mg Azithromycin (Zithromax) 500 mg PO DAILY [facility]; Protocol Stop: 07/04/18 13:00 Last Admin: 07/02/18 16:53 Dose: 500 mg Benzocaine/Menthol (Cepacol Sore Throat) 1 mallory PO Q6 [facility] Last Admin: 07/03/18 06:10 Dose: Not Given Dextrose (Dextrose 50% Inj) 0 ml IV STAT PRN; Protocol PRN Reason: Hypoglycemia Protocol Dextrose (Glutose 15) 0 gm PO ONCE PRN; Protocol PRN Reason: Hypoglycemia Protocol Glucagon (Glucagen Diagnostic Kit) 0 mg IM STAT PRN; Protocol PRN Reason: Hypoglycemia Protocol Heparin Sodium/Dextrose (Heparin 25,000 Units/250ml In D5w) 25,000 units in 250 mls @ 10 mls/hr IV .Q24H [facility]; Protocol Last Admin: 07/02/18 21:09 Dose: 12 mls/hr Heparin Sodium/Dextrose (Heparin 25,000 Units/250ml In D5w) 25,000 units in 250 mls @ 12 mls/hr IV .[id number] [facility]; Protocol Last Admin: 07/02/18 16:55 Dose: 12 mls/hr Insulin Detemir (Levemir) 14 units SC HS [facility] Last Admin: 07/02/18 21:04 Dose: 14 units Insulin Human Lispro (Humalog) 0 units SC ACHS [facility]; Protocol Last Admin: 07/03/18 06:55 Dose: 2 units Lisinopril (Zestril) 40 mg PO DAILY [facility] Last Admin: 07/02/18 10:12 Dose: 40 mg Metoprolol Succinate (Toprol Xl) 75 mg PO DAILY [facility] Nicotine (Nicoderm Cq) 1 patch TD DAILY [facility] Last Admin: 07/02/18 10:06 Dose: 1 patch Pantoprazole Sodium (Protonix Ec Tab) 40 mg PO DAILY [facility] Last Admin: 07/02/18 10:10 Dose: 40 mg Thiamine HCl (Vitamin B1 Tab) 100 mg PO DAILY [facility] Last Admin: 07/02/18 16:28 Dose: 100 mg Zolpidem Tartrate (Ambien) 5 mg PO HS PRN PRN Reason: Insomnia Last Admin: 07/02/18 21:29 Dose: 5 mg - Labs Labs: 07/03/18 04:55 07/03/18 04:55 PT 11.6 Seconds (9.8-13.1) 07/03/18 04:55 INR 1.0 07/03/18 04:55 APTT 52.8 Seconds (25.6-37.1) H 07/03/18 04:55 - Skin Additional comments: Constitutional Appears: Non-toxic, No Acute Distress - Eye Exam Eye Exam: Normal appearance - ENT Exam ENT Exam: Mucous Membranes Moist - Respiratory Exam Respiratory Exam: Clear to Ausculation Bilateral, NORMAL BREATHING PATTERN. absent: Rales, Rhonchi, Wheezes, Respiratory Distress, Stridor - Cardiovascular Exam Cardiovascular Exam: Tachycardia, REGULAR RHYTHM, +S1, +S2 - GI/Abdominal Exam GI & Abdominal Exam: Soft, Normal Bowel Sounds. absent: Distended, Guarding, Tenderness - Extremities Exam Extremities Exam: Normal Inspection. absent: Calf Tenderness, Pedal Edema - Back Exam Back Exam: NORMAL INSPECTION. absent: CVA tenderness (L), CVA tenderness (R) - Neurological Exam Neurological Exam: Alert, Awake, Oriented x3 - Skin Skin Exam: Dry, Intact, Normal Color Assessment and Plan - Assessment and Plan (Free Text) Assessment: 52 y/o F with PMHx of HTN, DM type 2 admitted with URI, tachycardia, and elevated lactic acid. Plan: Dyspnea on exertion -troponin x 2 negative on admission -Lexiscan stress test done on 07/02/18 positive for CAD -NPO since midnight for Cardiac cath this morning at 11:15 am at [facility] by Dr. Monk. -On Heparin drip. -Had a Brillinta 180 mg loading dose yesterday as per Cardiology recs. 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 Monk. -echocardiogram reported as EF : 55-60 %, abnormal relaxation, left atrium mildly dilated, mild aortic reg, mild mitral valve regurg -DC Metoprolol succ 50 mg -yesterday metoprolol succ 25 mg once dose given -Started on Metoprolol Succ 75 mg this morning -c/w Heparin drip as per Cardiology recs -troponin I x 2 negative -TSH WNL -urine toxicology negative on admission -f/u HR -Cardiology consult, appreciated recommendations Pharyngitis improving seems to be viral etiology, however lactic acid is elevated on admission, and pt is tachycardic -rapid strep test in ER neg -flu A/B test negative -cepachol for sore throat -tylenol PRN if fevers -avoid NSAIDs -s/p zosyn, and azithro in ER one dose, will re-assess in the morning Elevated lactate resolved/1.4 -procalcitonin <0.05 -troponin I x 2 negative -f/u UA Hypertension uncontrolled -DC amlodipine 10 due to tachycardia -c/w Lisinopril 40 mg -increase Metoprolol succ from 25 to 50 mg -f/u BP DM type 2 accuckeck ACHS on levemir 14 units humalog by sliding scale ACHS low dose diabetic diet hgbA1C 8.6 lipid panel: cho: 186, LDL: 102, HDL: 81 still on hold Metformin 1000 mg BID due to cardiac cath this AM -start aspirin, and statin Smoker nicotine patch DVT prophylaxis on heparin drip as per Cardiology recs
[2018-07-03] MEDS ORDERED: Metoprolol Succinate 25 mg XL Tab PO SCH (09:00)
--- NOTE | 2018-07-03 15:11 | CP.PCM.PN ---
Subjective - Date & Time of Evaluation Date of Evaluation: 07/03/18 Time of Evaluation: 15:10 - Subjective Subjective: s/p LHCx showing non-obstructive CAD with slow flow / endothelial function Objective - Vital Signs/Intake and Output Vital Signs (last 24 hours): Temp Pulse Resp BP Pulse Ox 98.3 F 89 16 150/82 99 07/03/18 04:08 07/03/18 04:08 07/03/18 04:08 07/03/18 04:08 07/03/18 04:08 Intake and Output: 07/03/18 07/03/18 06:59 18:59 Intake Total 170 Balance 170 - Medications Medications: Current Medications Acetaminophen (Tylenol 325mg Tab) 650 mg PO Q6 PRN PRN Reason: Fever >100.4 F Aspirin (Ecotrin) 81 mg PO DAILY [facility] Last Admin: 07/02/18 10:09 Dose: 81 mg Atorvastatin Calcium (Lipitor) 40 mg PO HS [facility] Last Admin: 07/02/18 21:03 Dose: 40 mg Azithromycin (Zithromax) 500 mg PO DAILY [facility]; Protocol Stop: 07/04/18 13:00 Last Admin: 07/02/18 16:53 Dose: 500 mg Benzocaine/Menthol (Cepacol Sore Throat) 1 mallory PO Q6 [facility] Last Admin: 07/03/18 06:10 Dose: Not Given Dextrose (Dextrose 50% Inj) 0 ml IV STAT PRN; Protocol PRN Reason: Hypoglycemia Protocol Dextrose (Glutose 15) 0 gm PO ONCE PRN; Protocol PRN Reason: Hypoglycemia Protocol Glucagon (Glucagen Diagnostic Kit) 0 mg IM STAT PRN; Protocol PRN Reason: Hypoglycemia Protocol Heparin Sodium/Dextrose (Heparin 25,000 Units/250ml In D5w) 25,000 units in 250 mls @ 10 mls/hr IV .Q24H [facility]; Protocol Last Admin: 07/02/18 21:09 Dose: 12 mls/hr Heparin Sodium/Dextrose (Heparin 25,000 Units/250ml In D5w) 25,000 units in 250 mls @ 12 mls/hr IV .[id number] [facility]; Protocol Last Admin: 07/02/18 16:55 Dose: 12 mls/hr Insulin Detemir (Levemir) 14 units SC [facility] Last Admin: 07/02/18 21:04 Dose: 14 units Insulin Human Lispro (Humalog) 0 units SC ACHS [facility]; Protocol Last Admin: 07/03/18 06:55 Dose: 2 units Lisinopril (Zestril) 40 mg PO DAILY [facility] Last Admin: 07/02/18 10:12 Dose: 40 mg Metoprolol Succinate (Toprol Xl) 75 mg PO DAILY [facility] Nicotine (Nicoderm Cq) 1 patch TD DAILY [facility] Last Admin: 07/02/18 10:06 Dose: 1 patch Pantoprazole Sodium (Protonix Ec Tab) 40 mg PO DAILY [facility] Last Admin: 07/02/18 10:10 Dose: 40 mg Thiamine HCl (Vitamin B1 Tab) 100 mg PO DAILY [facility] Last Admin: 07/02/18 16:28 Dose: 100 mg Zolpidem Tartrate (Ambien) 5 mg PO HS PRN PRN Reason: Insomnia Last Admin: 07/02/18 21:29 Dose: 5 mg - Labs Labs: 07/03/18 04:55 07/03/18 04:55 PT 11.6 Seconds (9.8-13.1) 07/03/18 04:55 INR 1.0 07/03/18 04:55 APTT 52.8 Seconds (25.6-37.1) H 07/03/18 04:55 - Constitutional Appears: Well - Head Exam Head Exam: ATRAUMATIC, NORMAL INSPECTION, NORMOCEPHALIC - Eye Exam Eye Exam: EOMI, Normal appearance, PERRL Pupil Exam: NORMAL ACCOMODATION, PERRL - ENT Exam ENT Exam: Mucous Membranes Moist, Normal Exam - Neck Exam Neck Exam: Full ROM, Normal Inspection. absent: Lymphadenopathy - Respiratory Exam Respiratory Exam: Clear to Ausculation Bilateral, NORMAL BREATHING PATTERN - Cardiovascular Exam Cardiovascular Exam: REGULAR RHYTHM, +S1, +S2. absent: Murmur - GI/Abdominal Exam GI & Abdominal Exam: Soft, Normal Bowel Sounds. absent: Tenderness - Extremities Exam Extremities Exam: Full ROM, Normal Capillary Refill, Normal Inspection. absent: Joint Swelling, Pedal Edema - Back Exam Back Exam: NORMAL INSPECTION - Neurological Exam Neurological Exam: Alert, Awake, CN II-XII Intact, Normal Gait, Oriented x3 - Psychiatric Exam Psychiatric exam: Normal Affect, Normal Mood - Skin Skin Exam: Dry, Intact, Normal Color, Warm Assessment and Plan (1) Unstable angina Assessment & Plan: s/p LHCx showing non-obstructive CAD slow flow phenomenon / endothelial dysfunction keep pt on asa 81mg po daily chg BB to Coreg 3.125mg po bid crestor 40mg po qhs losartan 25mg po daily Status: Acute (2) Abnormal nuclear stress test Status: Acute (3) HTN (hypertension) Status: Acute (4) Dyslipidemia Status: Acute
[2018-07-03] MEDS: Heparin 25,000units in D5W 25,000 UNITS/250 ML BAG IV SCH (19:13)
--- NOTE | 2018-07-03 20:25 | CP.PCM.PCO ---
Assessment and Plan - Assessment and Plan (Free Text) Assessment: Patient returned from [facility] this evening s/p left heart catheterization this afternoon. Patient has non-obstructive CAD and no stent was placed. Patient is comfortably resting in bed. Patient reports mild pain at the catheter insertion site of right radial artery but requests no pain medication. Denies any swelling or ecchymosis at the site. Denies any chest pain, dyspnea, headache, dizziness, nausea or vomiting. Pleasant, AAO x3, resting comfortably in bed, not in acute distress Cardio: RRR, normal S1,S2 Respiratory: clear to auscultation B/L. No wheezing or crackles MSK: Right distal radial forearm catheter insertion site is cover with bandage. No swelling or ecchymosis seen. Neurovascular intact. -Non-obstructive CAD -Continue with present management as ordered -Anticipate discharge tomorrow AM [facility], pgy-2
[2018-07-03] MEDS: Pantoprazole 40 mg EC Tab PO SCH (21:39)
[2018-07-03] MEDS: Insulin Detemir 100 Units/ml Inj SC SCH (21:58)
[2018-07-04 07:21] LABS: BASO # 0.1 K/uL (0.0-0.2); BASO % 0.9 % (0.0-2.0); EOS # 0.1 K/uL (0.0-0.7); EOS % 1.6 % (0.0-4.0); HEMOGLOBIN 12.3 g/dL (12.0-16.0); LYMPH # 2.3 K/uL (1.0-4.3); LYMPH % 29.4 % (20.0-40.0); MEAN CELL VOLUME 83.1 fl (81.0-99.0); MEAN CORPUSCULAR HEMOGLOBIN 28.2 pg (27.0-31.0); MEAN PLATELET VOLUME 7.9 fl (7.2-11.7); MONO % 12.6 % (0.0-10.0); NEUT # 4.3 K/uL (1.8-7.0); NEUT % 55.5 % (50.0-75.0); NRBC % 0.2 % (0.0-0.0); RBC 4.37 Mil/uL (3.80-5.20); WHITE BLOOD COUNT 7.8 K/uL (4.8-10.8)
[2018-07-04 07:57] LABS: BLOOD UREA NITROGEN 11 mg/dl (7-17); CALCIUM 9.3 mg/dL (8.4-10.2); GFR NON-AFRICAN AMERICAN > 60
[2018-07-04] MEDS: Benzocaine/Menthol (Cepacol) Lozenge PO SCH ×2 (09:33→09:34)
[2018-07-04] MEDS: Pantoprazole 40 mg EC Tab PO SCH (09:37)
[2018-07-04 09:38] VITALS: PULSE 92
[2018-07-04] MEDS: Insulin Lispro (humaLOG) 100 Units/ml Inj SC SCH ×2 (10:16→13:23)
[2018-07-04] MEDS: Heparin 25,000units in D5W 25,000 UNITS/250 ML BAG IV SCH (11:08)
[2018-07-04 11:17] VITALS: RESP 20; TEMP 98.1; O2SAT 100
--- NOTE | 2018-07-04 12:08 | CP.PCM.DIS ---
<Adriana Wilson - Last Filed: 07/04/18 15:30> Provider - Provider Date of Admission: 06/30/18 15:57 Attending physician: Lori Reid MD Consults: 07/01/18 17:13 Cardiology Consult Routine Comment: Consulting Provider: Davin Monk Consulting Physician: Davin Monk Reason for Consult: Persistent tachy/incomplete LBBB Time Spent in preparation of Discharge (in minutes): 30 Diagnosis - Discharge Diagnosis (1) CAD (coronary artery disease) Status: Acute Comment: stable (2) HTN (hypertension) Status: Chronic (3) Diabetes mellitus Status: Chronic Hospital Course - Lab Results Lab Results: Micro Results 06/30/18 12:25 Blood Blood Culture - Preliminary NO GROWTH AFTER 3 DAYS 06/30/18 10:55 Throat Group A Strep Throat Culture - Final NO BETA STREP GROUP A ISOLATED. Most Recent Lab Values WBC 7.8 K/uL (4.8-10.8) 07/04/18 05:30 RBC 4.37 Mil/uL (3.80-5.20) 07/04/18 05:30 Hgb 12.3 g/dL (12.0-16.0) 07/04/18 05:30 Hct 36.3 % (34.0-47.0) 07/04/18 05:30 MCV 83.1 fl (81.0-99.0) 07/04/18 05:30 MCH 28.2 pg (27.0-31.0) 07/04/18 05:30 MCHC 34.0 g/dL (33.0-37.0) 07/04/18 05:30 RDW 15.0 % (11.5-14.5) H 07/04/18 05:30 Plt Count 392 K/uL (130-400) 07/04/18 05:30 MPV 7.9 fl (7.2-11.7) 07/04/18 05:30 Neut % (Auto) 55.5 % (50.0-75.0) 07/04/18 05:30 Lymph % (Auto) 29.4 % (20.0-40.0) 07/04/18 05:30 Kings % (Auto) 12.6 % (0.0-10.0) H 07/04/18 05:30 Eos % (Auto) 1.6 % (0.0-4.0) 07/04/18 05:30 Baso % (Auto) 0.9 % (0.0-2.0) 07/04/18 05:30 Neut # (Auto) 4.3 K/uL (1.8-7.0) 07/04/18 05:30 Lymph # (Auto) 2.3 K/uL (1.0-4.3) 07/04/18 05:30 Kings # (Auto) 1.0 K/uL (0.0-0.8) H 07/04/18 05:30 Eos # (Auto) 0.1 K/uL (0.0-0.7) 07/04/18 05:30 Baso # (Auto) 0.1 K/uL (0.0-0.2) 07/04/18 05:30 PT 11.6 Seconds (9.8-13.1) 07/03/18 04:55 INR 1.0 07/03/18 04:55 APTT 52.8 Seconds (25.6-37.1) H 07/03/18 04:55 pO2 69 mm/Hg (30-55) H 06/30/18 16:45 VBG pH 7.41 (7.32-7.43) 06/30/18 16:45 VBG pCO2 31 mmHg (40-60) L 06/30/18 16:45 VBG HCO3 21.7 mmol/L 06/30/18 16:45 VBG Total CO2 20.6 mmol/L (22-28) L 06/30/18 16:45 VBG O2 Sat (Calc) 96.5 % (40-65) H 06/30/18 16:45 VBG Base Excess -4.0 mmol/L (0.0-2.0) L 06/30/18 16:45 VBG Potassium 4.2 mmol/L (3.6-5.2) 06/30/18 16:45 Sodium 131.0 mmol/L (132-148) L 06/30/18 16:45 Chloride 99.0 mmol/L (98-107) 06/30/18 16:45 Glucose 337 mg/dL (65-105) H 06/30/18 16:45 Lactate 4.3 mmol/L (0.7-2.1) H* 06/30/18 16:45 FiO2 21.0 % 06/30/18 16:45 Crit Value Called To Paige brower md 06/30/18 16:45 Crit Value Called By [id number] 06/30/18 16:45 Crit Value Read Back Y 06/30/18 16:45 Blood Gas Notified Time 1648 06/30/18 16:45 Sodium 137 mmol/l (132-148) 07/04/18 05:30 Potassium 4.3 MMOL/L (3.6-5.0) 07/04/18 05:30 Chloride 102 mmol/L (98-107) 07/04/18 05:30 Carbon Dioxide 25 mmol/L (22-30) 07/04/18 05:30 Anion Gap 14 (10-20) 07/04/18 05:30 BUN 11 mg/dl (7-17) 07/04/18 05:30 Creatinine 0.5 mg/dl (0.7-1.2) L 07/04/18 05:30 Est GFR ( Amer) > 60 07/04/18 05:30 Est GFR (Non-Af Amer) > 60 07/04/18 05:30 POC Glucose (mg/dL) 340 mg/dL (65-110) H 07/04/18 11:44 Random Glucose 228 mg/dL (65-105) H 07/04/18 05:30 Hemoglobin A1c 8.6 % (4.2-6.5) H 06/30/18 18:45 Lactic Acid 1.1 MMOL/L (0.7-2.1) 07/02/18 04:55 Calcium 9.3 mg/dL (8.4-10.2) 07/04/18 05:30 Total Bilirubin 0.4 mg/dl (0.2-1.3) 07/01/18 02:55 AST 14 U/L (14-36) 07/01/18 02:55 ALT 13 U/L (9-52) 07/01/18 02:55 Alkaline Phosphatase 58 U/L (38-126) 07/01/18 02:55 Troponin I < 0.0120 ng/mL (0.00-0.120) 12/12/18 02:55 Total Protein 6.7 G/DL (6.3-8.2) 07/01/18 02:55 Albumin 3.6 g/dL (3.5-5.0) 07/01/18 02:55 Globulin 3.1 gm/dL (2.2-3.9) 07/01/18 02:55 Albumin/Globulin Ratio 1.2 (1.0-2.1) 07/01/18 02:55 Triglycerides 111 mg/DL (0-149) 06/30/18 18:45 Cholesterol 186 mg/dL (0-199) 06/30/18 18:45 LDL Cholesterol Direct 102 mg/dL (0-129) 06/30/18 18:45 HDL Cholesterol 81 MG/DL (30-70) H 06/30/18 18:45 Procalcitonin < 0.05 NG/ML (0.19-0.49) L 06/30/18 18:45 TSH 3rd Generation 2.24 mIU/ML (0.46-4.68) 07/01/18 17:49 Venous Blood Potassium 4.2 mmol/L (3.6-5.2) 06/30/18 16:45 Urine Opiates Screen Negative (NEGATIVE) 06/30/18 18:52 Urine Methadone Screen Negative (NEGATIVE) 06/30/18 18:52 Ur Barbiturates Screen Negative (NEGATIVE) 06/30/18 18:52 Ur Phencyclidine Scrn Negative (NEGATIVE) 06/30/18 18:52 Ur Amphetamines Screen Negative (NEGATIVE) 06/30/18 18:52 U Benzodiazepines Scrn Negative (NEGATIVE) 06/30/18 18:52 U Oth Cocaine Metabols Negative (NEGATIVE) 06/30/18 18:52 U Cannabinoids Screen Negative (NEGATIVE) 06/30/18 18:52 Influenza Typ A,B (EIA) Negative for flu a/b (NEGATIVE) 07/01/18 15:20 Grp A Beta Strep Ag Negative (NEGATIVE) 06/30/18 10:55 - Hospital Course Hospital Course: 52 y/o F with PMHx of HTN, DM type 2 admitted with URI, tachycardia, and elevated lactic acid. On admission was noted changes in EKG. Troponin I x 2 negative. TSH WNL. Echocardiogram reported as EF : 55-60 %, with abnormal relaxation of left ventricle. Cardiology was consulted. Dr. Monk recommended a lexiscan stress test for better cardiac evaluation. Per [employer] report, stress test was positive for reversible CAD. Patient was transferred to [facility] for cardiac catheterizarion on 07/03/18. LHCx showed non-obstructive CAD with slow flow / endothelial function. For URI patient completed 5 days of azithromycin. Repeat lactic acid was WNL. Metformin was held due to elevated lactic acid. Will resume metformin on discharge, and repeat lactic acid in 1 week. Pt stable for discharged. Started on basal insulin on admission due to uncontrolled DM. Taught by nurse how to check BSL, and administer insulin at home . will f/u with PMD, Dr. Reid. Discharged on : Carvedilol 3.125 mg BID, aspirin 81 mg, Crestor 40 mg, Losartan 25 mg, Levemir 10 units SC, Metformin 1000 mg bid Repeat lactic acid in 1 week. Prescription given to patient for blood work as outp. Prescription for glucometer, lancets, strips, alcohol pads, syringes, needles given. All new medication sent to [facility] pharmacy. Pharmacy called, and confirmed that they received the medications via [facility] DC amlodipine, lisinopril on this admission. - Date & Time of H&P Date of H&P: 06/30/18 Time of H&P: 17:45 Discharge Exam - Head Exam Head Exam: ATRAUMATIC, NORMAL INSPECTION, NORMOCEPHALIC - Eye Exam Eye Exam: Normal appearance - ENT Exam ENT Exam: Mucous Membranes Moist - Respiratory Exam Respiratory Exam: Clear to PA & Lateral, NORMAL BREATHING PATTERN. absent: Chest Wall Tenderness, Decreased Breath Sounds, Rales, Rhonchi, Wheezes, Respiratory Distress, Stridor - Cardiovascular Exam Cardiovascular Exam: REGULAR RHYTHM, +S1, +S2 - GI/Abdominal Exam GI & Abdominal Exam: Normal Bowel Sounds, Soft. absent: Guarding, Rebound, Rigid, Tenderness - Extremities Exam Extremities exam: normal inspection - Back Exam Back exam: absent: CVA tenderness (L), CVA tenderness (R) - Neurological Exam Neurological exam: Alert, Oriented x3 - Psychiatric Exam Psychiatric exam: Normal Affect, Normal Mood - Skin Skin Exam: Dry, Intact, Normal Color Discharge Plan - Discharge Medications Prescriptions: Aspirin [Ecotrin] 81 mg PO DAILY #30 tabec Carvedilol [Coreg] 3.125 mg PO Q12 30 Days #60 tab Insulin Detemir [Levemir] 10 units SC HS #1 vial Losartan [Cozaar] 25 mg PO DAILY #30 tab MetFORMIN [glucoPHAGE] 1,000 mg PO BID 30 Days #60 tab Rosuvastatin Calcium [Crestor] 40 mg PO HS 30 Days #30 tablet - Follow Up Plan Condition: IMPROVED Disposition: HOME/ ROUTINE Patient education suggested?: Yes Instructions: High Blood Pressure (DC), Angina (DC) Additional Instructions: Follow up with PMD in 1 week. Referrals: Lori Reid MD [Staff Provider] - Davin Monk MD [Staff Provider] - <Lucy Peres - Last Filed: 07/04/18 18:06> Provider - Provider Date of Admission: 06/30/18 15:57 Attending physician: Lori Reid MD Consults: 07/01/18 17:13 Cardiology Consult Routine Comment: Consulting Provider: Davin Monk Consulting Physician: Davin Monk Reason for Consult: Persistent tachy/incomplete [facility] Hospital Course - Lab Results Lab Results: Micro Results 06/30/18 12:25 Blood Blood Culture - Preliminary NO GROWTH AFTER 4 DAYS 06/30/18 10:55 Throat Group A Strep Throat Culture - Final NO BETA STREP GROUP A ISOLATED. Most Recent Lab Values WBC 7.8 K/uL (4.8-10.8) 07/04/18 05:30 RBC 4.37 Mil/uL (3.80-5.20) 07/04/18 05:30 Hgb 12.3 g/dL (12.0-16.0) 07/04/18 05:30 Hct 36.3 % (34.0-47.0) 07/04/18 05:30 MCV 83.1 fl (81.0-99.0) 07/04/18 05:30 MCH 28.2 pg (27.0-31.0) 07/04/18 05:30 MCHC 34.0 g/dL (33.0-37.0) 07/04/18 05:30 RDW 15.0 % (11.5-14.5) H 07/04/18 05:30 Plt Count 392 K/uL (130-400) 07/04/18 05:30 MPV 7.9 fl (7.2-11.7) 07/04/18 05:30 Neut % (Auto) 55.5 % (50.0-75.0) 07/04/18 05:30 Lymph % (Auto) 29.4 % (20.0-40.0) 07/04/18 05:30 Kings % (Auto) 12.6 % (0.0-10.0) H 07/04/18 05:30 Eos % (Auto) 1.6 % (0.0-4.0) 07/04/18 05:30 Baso % (Auto) 0.9 % (0.0-2.0) 07/04/18 05:30 Neut # (Auto) 4.3 K/uL (1.8-7.0) 07/04/18 05:30 Lymph # (Auto) 2.3 K/uL (1.0-4.3) 07/04/18 05:30 Kings # (Auto) 1.0 K/uL (0.0-0.8) H 07/04/18 05:30 Eos # (Auto) 0.1 K/uL (0.0-0.7) 07/04/18 05:30 Baso # (Auto) 0.1 K/uL (0.0-0.2) 07/04/18 05:30 PT 11.6 Seconds (9.8-13.1) 07/03/18 04:55 INR 1.0 07/03/18 04:55 APTT 52.8 Seconds (25.6-37.1) H 07/03/18 04:55 pO2 69 mm/Hg (30-55) H 06/30/18 16:45 VBG pH 7.41 (7.32-7.43) 06/30/18 16:45 VBG pCO2 31 mmHg (40-60) L 06/30/18 16:45 VBG HCO3 21.7 mmol/L 06/30/18 16:45 VBG Total CO2 20.6 mmol/L (22-28) L 06/30/18 16:45 VBG O2 Sat (Calc) 96.5 % (40-65) H 06/30/18 16:45 VBG Base Excess -4.0 mmol/L (0.0-2.0) L 06/30/18 16:45 VBG Potassium 4.2 mmol/L (3.6-5.2) 06/30/18 16:45 Sodium 131.0 mmol/L (132-148) L 06/30/18 16:45 Chloride 99.0 mmol/L (98-107) 06/30/18 16:45 Glucose 337 mg/dL (65-105) H 06/30/18 16:45 Lactate 4.3 mmol/L (0.7-2.1) H* 06/30/18 16:45 FiO2 21.0 % 06/30/18 16:45 Crit Value Called To Paige brower md 06/30/18 16:45 Crit Value Called By [id number] 06/30/18 16:45 Crit Value Read Back Y 06/30/18 16:45 Blood Gas Notified Time 1648 06/30/18 16:45 Sodium 137 mmol/l (132-148) 07/04/18 05:30 Potassium 4.3 MMOL/L (3.6-5.0) 07/04/18 05:30 Chloride 102 mmol/L (98-107) 07/04/18 05:30 Carbon Dioxide 25 mmol/L (22-30) 07/04/18 05:30 Anion Gap 14 (10-20) 07/04/18 05:30 BUN 11 mg/dl (7-17) 07/04/18 05:30 Creatinine 0.5 mg/dl (0.7-1.2) L 07/04/18 05:30 Est GFR ( Amer) > 60 07/04/18 05:30 Est GFR (Non-Af Amer) > 60 07/04/18 05:30 POC Glucose (mg/dL) 340 mg/dL (65-110) H 07/04/18 11:44 Random Glucose 228 mg/dL (65-105) H 07/04/18 05:30 Hemoglobin A1c 8.6 % (4.2-6.5) H 06/30/18 18:45 Lactic Acid 1.1 MMOL/L (0.7-2.1) 07/02/18 04:55 Calcium 9.3 mg/dL (8.4-10.2) 07/04/18 05:30 Total Bilirubin 0.4 mg/dl (0.2-1.3) 07/01/18 02:55 AST 14 U/L (14-36) 07/01/18 02:55 ALT 13 U/L (9-52) 07/01/18 02:55 Alkaline Phosphatase 58 U/L (38-126) 07/01/18 02:55 Troponin I < 0.0120 ng/mL (0.00-0.120) 07/01/18 02:55 Total Protein 6.7 G/DL (6.3-8.2) 07/01/18 02:55 Albumin 3.6 g/dL (3.5-5.0) 07/01/18 02:55 Globulin 3.1 gm/dL (2.2-3.9) 07/01/18 02:55 Albumin/Globulin Ratio 1.2 (1.0-2.1) 07/01/18 02:55 Triglycerides 111 mg/DL (0-149) 06/30/18 18:45 Cholesterol 186 mg/dL (0-199) 06/30/18 18:45 LDL Cholesterol Direct 102 mg/dL (0-129) 06/30/18 18:45 HDL Cholesterol 81 MG/DL (30-70) H 06/30/18 18:45 Procalcitonin < 0.05 NG/ML (0.19-0.49) L 06/30/18 18:45 TSH 3rd Generation 2.24 mIU/ML (0.46-4.68) 07/01/18 17:49 Venous Blood Potassium 4.2 mmol/L (3.6-5.2) 06/30/18 16:45 Urine Opiates Screen Negative (NEGATIVE) 06/30/18 18:52 Urine Methadone Screen Negative (NEGATIVE) 06/30/18 18:52 Ur Barbiturates Screen Negative (NEGATIVE) 06/30/18 18:52 Ur Phencyclidine Scrn Negative (NEGATIVE) 06/30/18 18:52 Ur Amphetamines Screen Negative (NEGATIVE) 06/30/18 18:52 U Benzodiazepines Scrn Negative (NEGATIVE) 06/30/18 18:52 U Oth Cocaine Metabols Negative (NEGATIVE) 06/30/18 18:52 U Cannabinoids Screen Negative (NEGATIVE) 06/30/18 18:52 Influenza Typ A,B (EIA) Negative for flu a/b (NEGATIVE) 07/01/18 15:20 Grp A Beta Strep Ag Negative (NEGATIVE) 06/30/18 10:55 Attending/Attestation - Attestation I have personally seen and examined this patient.: Yes I have fully participated in the care of the patient.: Yes I have reviewed all pertinent clinical information, including history, physical exam and plan: Yes Notes (Text): Unstable Angina Abnormal Nuclear Stress Test Nonobstructive CAD DM Type II with Hyperglycemia , Insulin started HTN - Cardiac cath showed nonobstructive CAD - cont ASA, BB, ARB and Statin - d/c home on Levemir- Educated on Insulin use by RN 07/04/18 18:06
[2018-07-04 14:06] VITALS: BP 131/87
== END 2018-07-04 14:27 | disposition home or self-care (01) | DRG 287 ==
LOC: H.ER 09:17 → H.ERHOLD 15:57 → H.TEL 17:26
PROVIDERS: ADMIT Family Medicine; ATTEND Family Medicine
PROC: 4A023N7 Measurement of Cardiac Sampling and Pressure, Left Heart, Percutaneous Approach (ICD-10-PCS; principal; 2018-07-03)
PROC: B211YZZ Fluoroscopy of Multiple Coronary Arteries using Other Contrast (ICD-10-PCS; 2018-07-03)
PROC: B215YZZ Fluoroscopy of Left Heart using Other Contrast (ICD-10-PCS; 2018-07-03)
DX: I25.110 Atherosclerotic heart disease of native coronary artery with unstable angina pectoris (principal); J02.8 Acute pharyngitis due to other specified organisms; I10 Essential (primary) hypertension; Z79.4 Long term (current) use of insulin; Z79.82 Long term (current) use of aspirin; F17.210 Nicotine dependence, cigarettes, uncomplicated; E78.5 Hyperlipidemia, unspecified; R94.39 Abnormal result of other cardiovascular function study; E87.6 Hypokalemia; B97.89 Other viral agents as the cause of diseases classified elsewhere; E11.65 Type 2 diabetes mellitus with hyperglycemia; R74.0 Nonspecific elevation of levels of transaminase and lactic acid dehydrogenase [LDH]; H92.01 Otalgia, right ear